=== PATIENT | male | born 1950 | race Caucasian/White ===

== ENCOUNTER → 2023-11-13 08:39 | Outpatient (CLI) | payer OTHER, SELFPAY | PROVIDERS: PCP Family Medicine; Referring Provider Family Medicine; Visit Provider Family Medicine | DX: E29.1 Testicular hypofunction (principal); M25.559 Pain in unspecified hip | CPT/HCPCS: 36415; 84402; 84403 ==

== ENCOUNTER → 2024-01-14 12:18 | Outpatient (CLI) | payer OTHER, SELFPAY ==
--- NOTE | 2024-01-14 12:19 | DI.MRI.S_ITS ---
PROCEDURE: MR LUMBAR SPINE WO CON INDICATIONS: worsening weakness and pain TECHNIQUE: Noncontrast sagittal T1 spin echo and T2 fast echo, sagittal STIR, and T2 fast spin echo through the lumbar spine. In cases with scoliosis, additional coronal T2 fast spin echo may be performed. COMPARISON: None. FINDINGS: Image quality: Excellent. Alignment and Curvature: No plain films are available for comparison, for numbering purposes. Thus, for the purposes of this examination, 5 lumbar type vertebral bodies will be presumed, as denoted on the montage panel. This should be confirmed and correlated with plain films, prior to any lumbar spinal intervention. There is loss of normal lumbar lordosis. 5 mm of retrolisthesis of L2 on L3. 4 mm of retrolisthesis of L3 on L4 and L4 on L5. 3 mm of retrolisthesis of L5 on S1.. Bone Marrow: Marrow is of normal overall signal. No acute vertebral body compression fractures. Moderate reactive signal within the endplates adjacent to the L2-L3 intervertebral disc. Mild reactive signal within the remaining lumbar and lower thoracic endplates. Spinal Cord: Conus medullaris terminates at the T12-L1 disc space level. Visualized cord demonstrates normal signal and size. Paraspinous Soft Tissues: No paravertebral masses. T12-L1: Normal appearance. L1-L2: Mild disc desiccation and diffuse disc bulge. Mild canal stenosis. Mild bilateral foraminal stenosis. L2-L3: Moderate disc height loss and desiccation. Mild diffuse disc bulge with superimposed left far lateral broad-based protrusion. Mild facet and ligamentum flavum hypertrophy. Mild canal stenosis. Mild left greater than right foraminal stenosis. L3-L4: Moderate disc desiccation. Mild disc height loss and diffuse disc bulge. Mild bilateral facet and ligamentum flavum hypertrophy. Mild canal stenosis. Mild bilateral foraminal stenosis. L4-L5: Severe disc height loss and desiccation. Mild diffuse disc bulge. Mild facet and ligamentum flavum hypertrophy. Mild canal stenosis. Moderate right and mild left foraminal stenosis. L5-S1: Moderate disc height loss and desiccation. Mild diffuse disc bulge with superimposed left posterolateral protrusion. Mild bilateral facet hypertrophy. Mild canal stenosis. Moderate bilateral foraminal stenosis. Left lateral recess stenosis with left S1 nerve root compression. IMPRESSION: 1. Multilevel degenerative disc and facet disease, as well as ligamentum flavum hypertrophy and epidural lipomatosis. 2. Mild multilevel canal stenoses. 3. Multilevel mild to moderate foraminal stenosis. 4. Left lateral recess stenosis at L5-S1 associated with left S1 nerve root compression. Recommend correlation with clinical symptoms to ascertain relevance of this finding. Dictated by: Geremias White M.D. on 01/14/2024 at 14:42 Approved by: Geremias White M.D. on 01/14/2024 at 14:51
--- NOTE | 2024-01-14 12:19 | DI.MRI.S_ITS ---
PROCEDURE: MR HIP LT WO CON INDICATIONS: worsening weakness and pain TECHNIQUE: Noncontrast coronal T1 spin echo and STIR through the bony pelvis. Coronal and axial T2 fast spin echo with fat saturation, sagittal T1 spin echo, and oblique axial T2 fast spin echo with fat saturation through the hip. COMPARISON: None. FINDINGS: Image quality: Excellent. Bones and joints: Moderate ill-defined STIR signal elevation within the left femoral head and neck. Moderate periarticular osteophyte formation at the bilateral hip joints. The visualized lower lumbar spine appears normally aligned. Tendons and ligaments: The gluteus medius and minimus tendons appear intact, without associated muscle atrophy. Mild T2 signal elevation adjacent to the femoral insertion sites of the left gluteus medius and minimus tendons. The nearby proximal iliotibial band also appears intact. The iliopsoas tendon appears intact, without adjacent bursal fluid collections or evidence for impingement syndrome. The origin of the hamstring tendon is intact at the ischial tuberosity, as well as the associated sacrotuberous ligament. Mild T2 signal elevation within the proximal left hamstring tendon. The straight and reflected heads of the rectus femoris muscle origin appear intact, as well as the conjoint tendon. The ligamentum teres appears intact where visualized. Labrum and cartilage: Severe left hip joint articular cartilage loss. Diffuse degenerative tearing of the left hip labrum. The alpha angle of the left femur is greater than expected at 66?. There is left femoral head/neck junction buttressing. Soft tissues: Visualized muscles demonstrate normal bulk and internal signal. Quadratus femoris muscle demonstrates no internal edema to suggest ischiofemoral impingement. The proximal sciatic neurovascular bundle appears normal adjacent to the hamstring tendons. No free pelvic fluid. Bladder wall thickness is normal. Genitourinary structures and bowel loops appear normal where visualized. IMPRESSION: 1. Bilateral hip osteoarthritis. Degenerative left hip labral tearing and associated articular cartilage loss. 2. Left femoral head and neck marrow edema, consistent with degenerative marrow edema versus transient osteoporosis of the hip. 3. Insertional tendinitis of the left gluteus medius and minimus tendons. 4. Mild left hamstring tendinopathy. Dictated by: Geremias White M.D. on 01/14/2024 at 13:16 Approved by: Geremias White M.D. on 01/14/2024 at 13:23
== END ==
PROVIDERS: PCP Family Medicine; Referring Provider Family Medicine; Visit Provider Family Medicine
DX: M16.0 Bilateral primary osteoarthritis of hip (principal); M76.02 Gluteal tendinitis, left hip; S73.102A Unspecified sprain of left hip, initial encounter; M25.552 Pain in left hip; R29.898 Other symptoms and signs involving the musculoskeletal system; M51.369 Other intervertebral disc degeneration, lumbar region without mention of lumbar back pain or lower extremity pain; M51.379 Other intervertebral disc degeneration, lumbosacral region without mention of lumbar back pain or lower extremity pain; M47.816 Spondylosis without myelopathy or radiculopathy, lumbar region; M47.817 Spondylosis without myelopathy or radiculopathy, lumbosacral region; M48.061 Spinal stenosis, lumbar region without neurogenic claudication; M48.07 Spinal stenosis, lumbosacral region
CPT/HCPCS: 72148; 73721

== ENCOUNTER → 2024-03-17 10:18 | Outpatient (CLI) | payer MEDICARE, SELFPAY ==
--- NOTE | 2024-03-17 10:23 | EKG_ITS ---
[place] [id number] [place] [id number] Test Date: 2024-03-17 [facility] Room: Gender: Male E Commerce Developer: MARCUS : 1950 Requested By: Order Number: [id number] Reading MD: Giovany Pedroza Measurements Intervals [place] Rate: 69 P: 62 MI: 166 QRS: 55 QRSD: 104 T: 53 QT: 418 QTc: 447 Interpretive Statements Normal sinus rhythm Electronically Signed On 03-17-2024 23:46:03 PST by Giovany Pedroza
[2024-03-17 10:48] LABS: Add Manual Diff / Slide Review NO; Basophils Absolute Auto 100 /uL (0-100); Basophils Percent Auto 1.1 % (0-2); Eosinophils Absolute Auto 100 /uL (0-450); Eosinophils Percent Auto 3.1 % (2-4); Hematocrit 42.9 % (41-53); Hemoglobin 14.5 g/dL (13.5-17.5); Lymphocytes Absolute Auto 1800 /uL (1100-4500); Lymphocytes Percent Auto 39.8 % (25-40); Mean Corpuscular HGB Conc 33.9 % (30-36); Mean Corpuscular Hemoglobin 30.1 PG (26-34); Mean Corpuscular Volume 88.8 fL (80-100); Monocytes Absolute Auto 400 /uL (0-900); Monocytes Percent Auto 8.9 % (3-14); Neutrophils Absolute Auto 2200 /uL (1500-7000); Neutrophils Percent Auto 47.1 % (50-75); Platelet Count 142 X10^3/uL (150-400); Red Blood Cell Count 4.83 X10^6/uL (4.5-5.9); Red Cell Distribution Width 14.2 % (11.6-14.8); White Blood Cell Count 4.6 X10^3/uL (4.5-11.0)
[2024-03-17 10:53] LABS: Hemoglobin A1C% w Est Avg Glu 5.4 % (4.0-6.0)
[2024-03-17 10:56] LABS: Albumin 4.4 g/dL (3.5-5.0); BUN Creatinine Ratio 19.3 (6-22); Blood Urea Nitrogen 17 mg/dL (9-20); Calcium 9.1 mg/dL (8.4-10.2); Carbon Dioxide 31 mmol/L (22-32); Chloride 102 mmol/L (98-107); Estimated Glomerular Filt Rate > 60 mL/min (>60); Glucose 81 mg/dL (80-110); HEMOLYSIS < 15 (0-50); Potassium 4.2 mmol/L (3.4-5.1); Sodium 140 mmol/L (137-145)
[2024-03-17 11:05] LABS: Prealbumin 18.5 mg/dL (17.6-36.0)
[2024-03-17 11:12] LABS: Vitamin D 25 Hydroxy (D3) 73.9 ng/mL (30.0-100.0)
== END ==
LOC: RESP 10:21
PROVIDERS: PCP Family Medicine; Referring Provider Orthopaedic Surgery Adult Reconstructive Orthopaedic Surgery; Visit Provider Orthopaedic Surgery Adult Reconstructive Orthopaedic Surgery
DX: Z01.818 Encounter for other preprocedural examination (principal); R73.9 Hyperglycemia, unspecified; E55.9 Vitamin D deficiency, unspecified; R77.0 Abnormality of albumin; Z01.812 Encounter for preprocedural laboratory examination
CPT/HCPCS: 36415; 80048; 82040; 82306; 83036; 84134; 85025; 93005

== ENCOUNTER 2024-04-16 06:14 | Day surgery (SDC) | payer MEDICARE, SELFPAY ==
[2024-04-07 08:06] VITALS: BMI 21.6
[2024-04-16] VITALS (14 sets, daily range): BP systolic 96–131; BP diastolic 55–76; PULSE 71–105; RESP 10–20; TEMP 36.2–36.6; O2SAT 96–100; BMI 21.6
--- NOTE | 2024-04-16 | DI.RAD.S_ITS ---
PROCEDURE: XR HIP W PEL IF DONE LT 2V INDICATIONS: LT TOTAL HIP ARTHROPLASTY TECHNIQUE: Fluoroscopic guidance utilized for a left hip arthroplasty COMPARISON: None. FINDINGS: Fluoroscopic images submitted for a left hip arthroplasty. Please see operative note for further discussion. IMPRESSION: Fluoroscopic guidance. Dictated by: Daniel Martinez M.D. on 04/16/2024 at 10:41 Approved by: Daniel Martinez M.D. on 04/16/2024 at 10:41
--- NOTE | 2024-04-16 | PATH_ITS ---
[facility] Accession Number: [id number] No. of containers..01 Tissue . 01 Material submitted: . femur - FEMORAL HEAD . 01 Diagnosis: FEMORAL HEAD: Femoral head with degenerative joint disease changes. MRV 04/22/2024 1424 Local . 01 Electronically signed: . Bev Whitney MD, Pathologist NPI- [id number] . 01 Gross description: . Received in formalin, labeled with two identifiers and femoral head, are two fragments of bone. The first is the femoral head measuring 5.8 x 5.0 x 3.6 cm with a portion of femoral head ligament measuring 3.4 x 1.5 x 0.7 cm. The articular surface has an area of eburnation measuring 4.2 x 2.1 cm and an area of osteophytes measuring 4.5 x 2.0 cm. Sectioning reveals red-shafer trabecular osseous tissue with no lesions identified. . A second portion of bone is consistent with femoral neck and measures 5.4 x 4.5 x 3.1 cm. There are multiple bony projections on the external surface consistent with osteophytes. Sectioning reveals shafer trabecular osseous tissue with no lesions identified. Business Services Coordinator sections are submitted as follows: A1: Femoral head eburnation. A2: Femoral head osteophytes. A3: Femoral neck with osteophytes. . Specimen decalcified. ([id number]) /FRR 04/17/2024 1019 Local . 01 Pathologist provided ICD-10: M16.12 . 01 CPT . 525413, [id number] Specimen Comment: A courtesy copy of this report has been sent to [facility] Pathology Performed at: [address] [id number] MD Werner Whalen MD Phone: [phone]
--- NOTE | 2024-04-16 06:00 | DI.RAD.S_ITS ---
PROCEDURE: XR HIP W PEL IF DONE LT 2V INDICATIONS: jhoan TECHNIQUE: AP pelvis and lateral view of the hip acquired. COMPARISON: [facility], CR, XR HIP W PEL IF DONE LT 2V, 04/16/2024, 9:39. FINDINGS: Bones: Patient is status post total left hip arthroplasty, with hardware components in expected positions. The hip joint appears congruent. The visualized bony structures appear intact. Soft tissues: Overlying postoperative changes are noted. No suspicious soft tissue densities. IMPRESSION: Expected immediate postoperative appearance, status post total left hip arthroplasty. Dictated by: Basilio Kirby M.D. on 04/16/2024 at 11:02 Approved by: Basilio Kirby M.D. on 04/16/2024 at 11:03
[2024-04-16] MEDS: MELOXICAM 7.5 MG TABLET PO (06:47)
[2024-04-16] MEDS: ACETAMINOPHEN 325 MG TABLET 975 MG PO (06:47)
[2024-04-16] MEDS: LACTATED RINGERS 1,000 ML 42 ML IV ×2 (06:48→09:28)
--- NOTE | 2024-04-16 07:50 | PM.PREOP ---
Pre-operative Note Interval Note History & Physical reviewed/Exam performed by Physician: Yes Changes to H&P: No
[2024-04-16] MEDS: CEFAZOLIN 2 GM/100 ML PREMIX 100 ML IV (08:10)
[2024-04-16] MEDS: TRANEXAMIC ACID 1,000 MG VIAL 2000 MG INJ ×2 (08:20→10:04)
--- NOTE | 2024-04-16 08:37 | SUR.OPER ---
Supine on padded [place] table with bilateral legs secured in padded positioning boots and suspended in positioning spars, operative leg in traction per surgeon. Head on one pillow. Bilateral arms at side secured on padded armboard <90 degrees abduction. Padded perineal post in place per surgeon.
[2024-04-16] MEDS: ROPIVACAINE/EPI/CLONIDINE/KET 50 ML SYRINGE INJ (08:54)
--- NOTE | 2024-04-16 10:09 | PM.OP.1 ---
Operative Date/Time/Diagnoses Date of procedure: 04/16/24 Pre-op diagnosis: Left hip osteoarthritis Post-op diagnosis: same Procedure & Clinicians Procedure: Left total hip arthroplasty Same procedure as scheduled: Yes Surgeon: Amadou Nichole Curing Oven Attendant: Rosalina Gutierrez Anesthesia Type: Spinal, Sedation and Local Operative Notes Estimated Blood Loss (mL): 300 Procedure in detail: Left Uncemented Direct Anterior Depuy Total Hip Arthroplasty: Implants: Heartwell Gription size 64 cup? Actis femoral stem size 8 high offset? 36 mm +8.5 ceramic femoral head? Procedure Summary: This 73-year-old male patient is very active. He has severe radiographic arthritis and also had MRI findings demonstrating bony edema throughout the entire proximal femur which was consistent with transient osteoporosis of the hip. I had several long conversations with him and his family regarding whether we should move forward with a total hip arthroplasty given the significant arthritic changes or wait to see if his symptoms resolved with observation given the extensive edema throughout the proximal femur consistent with transient osteoporosis of the hip which is typically a self-resolving condition. He ultimately elected to proceed with total hip arthroplasty after extensive counseling. Intraoperatively today I used fairly large implants, a 64 cup and an 8 stem. These were close to his templated implants. He had very good cortical bone on both the acetabular and femoral sides. I initially trialed with a 7 stem and a +12 head however I found the broach to be rotationally unstable so I ended up upsizing to a size 8 stem which increased the construct neck length by 1 size. I therefore downsized the head to replicate the construct that had been used during the trials. I could not manually dislocate the hip with either the trials or the final implants with maximum external rotation or 45 degree drop test. Given the MRI findings I sent the femoral neck and femoral head to pathology for analysis. I did not notice anything unusual about either of them. These are pictured below Procedure in Detail: This patient was seen preoperatively and evaluated for hip pain which was refractory to numerous nonoperative treatment modalities. Their hip pain correlated with radiographic changes demonstrating significant degeneration in the hip joint. The risks and benefits of continued nonoperative management versus operative management were discussed at length and all of the patient?s questions were answered. Additional educational materials providing further details beyond our discussion in clinic were provided via a publicly available patient education video which included the incidence of medical complications associated with total hip arthroplasty, reasons for revision following total hip arthroplasty, and patient satisfaction rates following total hip arthroplasty. That video can be accessed at [email or web address] . With this understanding of the risks inherent to the procedure, the patient elected to move forward with operative management. Following preoperative optimization, the patient was scheduled for surgery. The patient was met in the preoperative holding area the day of the procedure and all questions were answered. The patient?s nares were swabbed with betadine in order to decolonize them from MRSA. Informed consent was signed and the left limb was marked with indelible ink.? The patient was brought back to the operating room where anesthesia was induced. The patient was transferred to the [place] table and all bony prominences were padded. The operative site was prepped and draped in the usual sterile fashion. Prior to incision, tranexamic acid and cefazolin were administered. Operative templating images were displayed demonstrating the anticipated implant sizes and correct operative extremity. A timeout procedure was performed verifying the patient?s identity, medical comorbidities, allergies, relevant medications, anesthesia type and the surgical plan. All present were in agreement. The assistance of a physician administrative support assistant was required for positioning, room setup, soft tissue retraction and wound closure. Without this assistance, the procedure would have been significantly more challenging and time consuming.?? A direct anterior approach to the hip was utilized. This was performed with a longitudinal incision through a Heuter interval. The incision was planned 2 cm distal and 2 cm lateral to the ASIS extending towards the lateral patella, in line with the muscle body of the TFL. Following incision, the subcutaneous tissue was dissected while taking care to avoid injury to the lateral femoral cutaneous nerve. The fascia overlying the TFL was identified by dissecting off the overlying fat and identifying perforating vessels to the TFL. The TFL fascia was incised and dissected away from the medial border of the TFL. A cobra retractor was placed over the superior femoral neck between the abductors and the hip capsule and used to reflect the TFL laterally. A Dixon self-retainer was then placed in the distal aspect of the wound between the TFL and the rectus femoris. This was tensioned to open up the direct anterior interval and the lateral circumflex vessels were identified and coagulated using electrocautery. The floor of the TFL fascia was incised, exposing the pericapsular fat overlying the hip capsule. A second cobra retractor was placed on the inferior femoral neck. A double-bent soft tissue retractor was placed on the anterior wall of the acetabulum and used to tension the reflected head of rectus femoris, which was then released in order to limit soft tissue tension. A capsulotomy was made in the midline of the anterior hip capsule in line with the femoral neck ending at the vastus tubercle. The double-bent retractor was removed in order to limit the amount of time that a soft tissue retractor remained on the anterior wall and protect the femoral nerve. Tag stitches were placed in the superior and inferior leaflets of the hip capsule. An Attila soft tissue retractor was introduced over the tag stitches and tensioned in the interval between the rectus femoris and the TFL in order to retract and protect those muscles. The cobra retractors were replaced intracapsularly, with one over the superior neck in the pocket created by the base of the greater trochanter and the other on the femoral head. The capsulotomy was extended laterally to the base of the greater trochanter and medially to the lesser trochanter. This required externally rotating the hip. Once the lesser trochanter had been identified, a neck cut was planned according to measurements from preoperative templating. A ruler was cut at the length measured between the superior aspect of the lesser trochanter and the collar of the prosthesis. This line was extended towards the inferior aspect of the lateral cobra retractor to plan a cut which would leave minimal residual femoral neck laterally. The neck was cut at 60 degrees of external rotation along that line. A second cut was performed to remove a large napkin ring and facilitate head extraction. The napkin ring cut and femoral head were removed.?? A broad anterior wall retractor was placed between the labrum and the anterior capsule so that the anterior capsule would prevent capturing and pinching the femoral nerve anteriorly. An additional retractor was placed on the posterior wall. External rotation and traction were applied through the [place] table so that the cut surface of the femoral neck would not restrict access to the acetabulum. The labrum was excised sharply and the pulvinar was excised with electrocautery to limit bleeding from branches of the obturator artery. Acetabular reamers were selected based on preoperative templating and measurements of the excised femoral head. These were introduced into the acetabulum. Fluoroscopy was utilized to replicate a standing AP pelvis radiograph by centering over the pelvis, rotating until there was appropriate symmetry between the obturator foramen, and introducing caudal tilt to match the position of the pubic symphysis relative to the sacrococcygeal junction according to the patient?s anatomy. Fluoroscopy was utilized to ensure appropriate reaming depth. Once satisfied with the reaming depth corresponding to the preoperative template and the pinch fit between the columns, an appropriate sized acetabular cup was selected which would provide 1 mm of press-fit. This cup was introduced and manipulated until appropriate abduction and anteversion angles were obtained with careful attention to appropriate abduction and anteversion angles as evaluated by the position of the cup relative to the anterior and posterior martin of the acetabulum and the AP fluoroscopy which recreated the patient?s standing radiograph. The cup was impacted into place. Peripheral osteophytes were removed. The acetabular liner was then placed with care to ensure locking of the locking mechanism.? Attention was then turned to the femur. All retractors were removed, traction was released, a retractor was placed in the interval between the hip capsule and the gluteus minimus, and the hip was externally rotated to 90 degrees. Traction was applied through the [place] table to tension the lateral capsule and this was released using electrocautery. Traction was released and a [place] hook was placed posteriorly around the proximal femur at the level of the vastus ridge. The table height was lowered in order to restrict the tension on the anterior structures during hip hyperextension to limit the risk of femoral nerve palsy. With traction off and the hip at 90 degrees of external rotation, the hip was hyperextended and adducted while manually elevating the femur away from the acetabulum with the [place] hook to ensure it would not be caught behind the greater trochanter. An asymmetric retractor was placed over the calcar and a broad double-pronged retractor was placed over the greater trochanter. The tag stitch capturing the lateral leaflet of the capsule was moved to the medial side, leaving the conjoined and piriformis tendons isolated in the face of the greater trochanter. The hip was externally rotated and elevated. A release of the conjoined tendon was not necessary in order to obtain adequate exposure for broaching. The canal was opened with an opening broach and a rasp was used to remove cancellous bone. A rongeur was used to remove the residual lateral bone at the base of the greater trochanter to avoid placing the stem in varus. The femur was then broached to the appropriate sized stem yielding good rotational fit and fill of the canal as well as appropriate version of the stem trial. Neck and head trials were placed, all retractors were removed and the hip was returned to neutral abduction and extension. I then reduced the hip. Initial trialing was performed with a size 7 broach, a high offset neck and a +5 head. I initially manually externally rotated the hip and found that it very easily dislocated so I upsized to a +12 head. This resolved the instability as I was now unable to manually dislocate the hip with maximum external rotation which was about 105?. I then locked the hip in 45 degrees of external rotation and dropped it to the floor with traction off which demonstrated no instability. An AP pelvis fluoroscopic image matching the preoperative standing radiograph with both lesser trochanters visible and both hips in 40 degrees of external rotation demonstrated appropriate leg length and offset. AP and lateral hip fluoroscopic images were obtained to evaluate the broach size which demonstrated good canal fill. The hip was dislocated and I returned to the broaching position. Based on my evaluation during initial trialing I planned to place these definitive implants. After returning to the broaching position I noted that the size 7 broach was slightly rotationally unstable so I think it significantly deeper. I then removed bone around the shoulder of the implant and broached with a size 8 broach down to the point where the calcar planer from the size 7 broach had been used. As I had upsized by 1 neck size I therefore planned to downsize by 1 head size which would result in the same construct as I had trialed with. The definitive stem was placed and the trunnion was cleaned and dried. I placed a ceramic head onto the trunnion and impacted it into place on the Morales taper.?? All retractors were removed and the hip was reduced. A dilute mixture of betadine and peroxide was used to bathe the soft tissues during final fluoroscopic assessment. Appropriate component positioning was confirmed on an AP pelvis radiograph with the operative and nonoperative legs in 40 degrees of external rotation, evaluating leg length and offset. Appropriate stem fill was evaluated on AP and lateral hip radiographs. No fractures were identified on these radiographs. There was no hip instability with maximum (105?) external rotation as well as a 45 degree drop test. The hip was copiously irrigated with pulse lavage. The capsule was closed with absorbable interrupted suture. The TFL fascia was closed with barbed suture while carefully protecting the lateral femoral cutaneous nerve from entrapment. A mixture of Ropivacaine, Epinephrine, Clonidine and Toradol was infiltrated throughout the soft tissues. The skin was closed with 2-0 and 3-0 sutures. Surgical glue was applied and a soft dressing was placed.??The sponge, instrument and needle counts were reported as being correct at the end of the case.??No obvious complications occurred. The patient was transferred from the [place] table back to a stretcher. The patient emerged from anesthesia without difficulty and was taken to the PACU in a stable condition.? Plan for aftercare: Anterior hip precautions Weightbearing as tolerated Aspirin 81 twice per day for DVT prophylaxis Anticipate discharge home today Change into normal clothes upon arrival on the hospital floor Mobilize in the halls as much as is logistically possible. If physical therapy is unavailable for mobilization, then patient should mobilize with nursing staff Multimodal pain regimen with no IV opioids ordered Apply ice machine to operative hip. Ensure that sufficient ice is in the chamber for the pad to remain cold Follow up at [facility] in 2 weeks Detailed postoperative instructions available at [email or web address]
[2024-04-16] MEDS: ONDANSETRON 4 MG/2 ML INJ IV (11:28)
[2024-04-16] MEDS: OXYCODONE IR 5 MG TABLET PO (11:29)
--- NOTE | 2024-04-16 13:50 | PT.IIE ---
Current Diagnoses Unilateral primary osteoarthritis, left hip (04/16/24) Surgery Performed Operation Date: 04/16/24 07:45 Actual Procedures p Total Hip Arthroplasty/Anterior Approach(Left) - Amadou Nichole MD Surgical History (Last Reviewed 04/16/24 @ 06:43 by Vicki Esparza, RN) Anesthesia History of abdominal surgery (~2007) History of shoulder surgery (~1997) [place] teeth extracted Medical History (Last Reviewed 04/16/24 @ 06:43 by Vicki Esparza, RN) ADHD Chicken pox (~1959) Hemorrhoid Hip pain (~2022) PVC (premature ventricular contraction) Restless leg syndrome (~1999) Tinnitus (~2021) Physical Therapy Inpatient Evaluation/Re-Eval M1 PT/OT-IP Prior Functional Status Start: 04/16/24 14:38 Freq: NEEDED Status: Active Protocol: Document 04/16/24 13:50 AB (Rec: 04/16/24 14:50 AB [id number]) Medical Review Prior Functional Status Medical History Reviewed Yes Communication able to make needs known Mobility and Gait pt stated that he was modified independent with all mobilities and ambulation without AD indoors/outdoors but occasionally uses walking sticks for outdoor walking Social History Household Members spouse Living Arrangements House Number of Floors (Floors) Two Floors Number of Stairs To Enter/Railing? no steps to enter the house has an elevator to 2nd floor Home Environment High Toilet,Walk in Shower, Built-In Shower Seat,Elevator Home Equipment Front Wheel Walker,Grab Bars In Shower Additional Social History Comment pt has an adjustable bed M2 PT-IP Current Condition Start: 04/16/24 14:38 Freq: NEEDED Status: Active Protocol: Document 04/16/24 13:50 AB (Rec: 04/16/24 14:50 AB [id number]) Physical Therapy Current Condition Current Condition Evaluation Date 04/16/24 Treatment Diagnosis s/p L JABARI anterior; difficulty in walking Onset Date 04/16/24 M3 PT-IP Subjective Start: 04/16/24 14:38 Freq: NEEDED Status: Active Protocol: Document 04/16/24 13:50 AB (Rec: 04/16/24 14:50 AB [id number]) Subjective Physical Therapy Visit Type Type Initial Evaluation Visit Start Time 13:50 Visit Stop Time 14:25 Number of PROJECT MANAGER Visits 0 Physical Therapy Visit Comments Patient Comments agreeable to do PT Therapy Pain Assessment Pain When Pain Assessed At Rest Pain Present Pain Present Pain Reported Location Left Hip Intensity 1 Scale Used Numeric (0 - 10) Pain Management Techniques Distraction,Modification of Treatment,Re-positioning, Timing of Activity with Medications M4 PT-IP Mobility and Gait Start: 04/16/24 14:38 Freq: NEEDED Status: Active Protocol: Document 04/16/24 13:50 AB (Rec: 04/16/24 14:50 AB [id number]) PT-Bed Mobility Assessment Supine to Sit Supine to Sit Standby Assistance Sit to Supine Sit to Supine Standby Assistance PT-Transfer Assessment Sit to and From Stand Sit to and from Stand Contact Guard Assistance,1 Person Assistance,Use of Upper Extremities Equipment Transfer Assistive Device Gait Belt,Front Wheeled Walker Orthotic/Prosthetic Devices or Brace: No Transfers Transfer Destination Bed Transfer Technique ambulated Transfer Ability Level of Assist Contact Guard Assistance,1 Person Assistance,Use of Upper Extremities Comments Mobility Comments Pt seen in PACU. pt sitting on EOB. nurse and spouse in with pt. obtained PLOF and home set up. BP checked: 105/ 63. post-op folder provided and reviewed contents. educated pt on L hip anterior precautions. pt completed sit to stand CGA. instructed pt to sit back on EOB. pt tends to not use/put weight on LLE. educated pt on WBAT on LLE and importance to use LLE. completed sit to stand CGA and ambulated to the other side of the bed using fWW CGA ~ 15 ft. pt slow to respond to questions. BP checked: 113/68 . pt completed sit<>supine SBA. pt sat on EOB. caregiver training conducted. educated spouse on how to use safety belt and how to assist pt. spouse able to put safety belt on pt and assisted pt with sit to stand. pt completed ambulation using FWW ~ 60 ft with spouse assisting . pt with no c/o dizziness/ lightheadedness. Nurse took over pt's care to assist pt to the toilet. Gait Assessment Gait Gait Assistance Required: Contact Guard Assist Distance (Feet) 60 Able to Maintain Weight Bearing Status Yes During Gait Assistive Devices Assistive Device Gait Belt,Front Wheeled Walker Orthotic/Prosthetic Devices or Brace: No Gait Deviations General Gait Pattern Antalgic,Decreased Stride Length,Decreased Feet Clearance Factors Limiting Gait Function Factors Limiting Gait Function Decreased Activity Tolerance, Decreased Sensation,Decreased Strength,Difficulty Following Directions,Limited Range of Motion,Pain,Poor Balance,Poor Safety Awareness PT-Balance Assessment Sitting Balance and Reactions Static Sitting Balance Ability Normal Dynamic Sitting Balance Ability Normal Standing Balance and Reactions Static Standing Balance Ability Good Dynamic Standing Balance Ability Fair Device Used FWW M5 PT-IP Objective Assessments Start: 04/16/24 14:38 Freq: NEEDED Status: Active Protocol: Document 04/16/24 13:50 AB (Rec: 04/16/24 14:50 AB [id number]) Orientation Orientation/Cognition Level of Alertness Alert Orientation Name,Age,Place,Situation Language Function Ability No Deficits Noted Safety Awareness Decreased Safety Awareness Memory Description Short Term Impaired Gross Range of Motion Lower Extremity ROM Assessment Within Functional Limits Strength Lower Extremity Strength Assessment Within Functional Limits Coordination Assessment Gross Coordination Gross Coordination WNL Sensation Assessment Sensation Sensation Description Tingling Comments Sensation Comments L toes tingling per pt. Muscle Tone Muscle Tone WNL Yes M6 PT-IP Treatment Start: 04/16/24 14:38 Freq: NEEDED Status: Active Protocol: Document 04/16/24 13:50 AB (Rec: 04/16/24 14:50 AB [id number]) Physical Therapy Treatment Education Education Provided Precautions,Weight Bearing Status,Post-Op Packet,Safety M7 PT-IP Assessment and Plan Start: 04/16/24 14:38 Freq: NEEDED Status: Active Protocol: Document 04/16/24 13:50 AB (Rec: 04/16/24 14:50 AB [id number]) PT Summary Assessment and Plan Potential Rehabilitation Potential Good Status of Condition at Evaluation Stable Summary Impairments Pain,ROM,Strength,Balance, Sensation,Cognition,Bed Mobility,Transfers,Gait, Activity Tolerance Assessment Summary pt is a 73 y/o M s/p L JABARI anterior approach POD 0. pt with L hip anterior precautions and is WBAT. pt requiring SBA to bed mobility and CGA for transfers and ambulation using FWW. caregiver training conducted and spouse was able to assist pt. Goals Bed Mobility Goal Independent Transfer Goal Independent,Front Wheeled Walker Gait Goal Independent,Front Wheel Walker Gait Distance 300 Days to Meet Goals 5 Frequency of Treatment Frequency Of Treatment Twice a Day Treatment Plan Physical Therapy Treatment Plan Bed Mobility Training,Transfer Training,Gait Training, Therapeutic Exercise,Balance Retraining,Post Op Education, Discharge Planning,Hot or Cold Pack,Neuromuscular Re-ed, Coordination Retraining,Manual Therapy Precautions Anterior Hip Precautions No Hip Extension,No Hip External Rotation Weight Bearing Status Weight Bearing Status Weight Bear as Tolerated Allowed Weight Bearing Amount (enter % LLE WBAT or #) (%) Recommendations To Nursing Amount of Assist Needed 1 Person Assist Discharge Recommendations PT Discharge Recommendations Home with Assistance, Outpatient PT Transportation Needs at Discharge Private Vehicle - PT assist CGA
== END 2024-04-16 14:50 | disposition home or self-care (01) ==
LOC: OR 06:15 → AC 06:15
PROVIDERS: PCP Family Medicine; Referring Provider Orthopaedic Surgery Adult Reconstructive Orthopaedic Surgery; Visit Provider Orthopaedic Surgery Adult Reconstructive Orthopaedic Surgery
PROC: (CPT 27130; principal; 2024-04-16 07:45)
DX: M16.12 Unilateral primary osteoarthritis, left hip (principal); M25.752 Osteophyte, left hip
CPT/HCPCS: 27130; 73502; 76000; 97161; 97530; C1776; C1713; J0690; J1100; J1885; J2250; J2405; J2704

== ENCOUNTER → 2024-08-06 15:33 | Outpatient (CLI) | payer MEDICARE, SELFPAY ==
--- NOTE | 2024-08-06 15:34 | DI.RAD.S_ITS ---
PROCEDURE: XR HAND RT MIN 3V INDICATIONS: eval interval thumb arthritis and any bony cause for trigger TECHNIQUE: 3 views of the hand(s) acquired. COMPARISON: None. FINDINGS: Bones: No fractures or dislocations. Carpal bones are normally aligned. No suspicious bony lesions. First CMC arthritic changes Soft tissues: No suspicious soft tissue calcifications. IMPRESSION: First CMC arthritic changes. No fracture Approved by: Amadou Horan M.D. on 08/06/2024 at 18:55
== END ==
PROVIDERS: PCP Family Medicine; Referring Provider Family Medicine; Visit Provider Family Medicine
DX: M79.644 Pain in right finger(s) (principal); G89.29 Other chronic pain
CPT/HCPCS: 73130